=== PATIENT | female | born 1980 | race Caucasian/White ===

== ENCOUNTER → 2016-03-06 | Outpatient (CLI) | payer BC ==
[~2016-03-06] MED LIST: AMPH10TA2 PO; ARMO150T4 PO; AZITTAB PO; CETI10TA84 PO; DIAZ2TAB PO; MTR400; MULT-506 PO; PSEU30TA64 PO; [UNRECOGNIZED DRUG - OTHER]
== END | disposition home or self-care (01) ==
LOC: C.PATH 13:48
PROVIDERS: ATTEND Obstetrics & Gynecology
DX: N72 Inflammatory disease of cervix uteri (principal); N87.1 Moderate cervical dysplasia

== ENCOUNTER → 2016-04-03 | Day surgery (SDC) | payer BC ==
[2016-03-21 11:08] LABS: BASO % 0.4 %; BASO ABS # 0.02 K/uL (0-0.2); COMPLETE YES; EOS % 3.2 %; HEMATOCRIT 38.2 % (37-47); IG% 0.2 %; LYMPH % 24.1 %; LYMPH ABS # 1.12 K/uL (1.2-3.4); MEAN CELL VOLUME 90.3 fL (80-100); MEAN CORPUSCULAR HEMOGLOBIN 30.7 pg (25-34); MONO % 9.9 %; NEUT % 62.2 %; PLATELET COUNT 272 K/uL (130-400); RED BLOOD COUNT 4.23 M/uL (4.2-5.4); WHITE BLOOD COUNT 4.65 K/uL (4.8-10.8)
[2016-03-21 12:10] VITALS: Ht 165.1 cm; Wt 70.9 kg
--- NOTE | 2016-03-21 12:53 | HISTORY & PHYSICAL EXAMINATION ---
DATE OF ADMISSION: 04/03/2016 ADMITTING DIAGNOSES: 1. Moderate cervical dysplasia. 2. Menorrhagia with regular cycles. ADMISSION HISTORY: The patient is a 35-year-old 1, para 1, last menstrual period of 11 March, who is admitted for LEEP excision of her transformation zone for FLORENCE II with placement of Mirena IUD for menorrhagia with regular cycles. The patient had colposcopic directed biopsies in the office which showed FLORENCE II, treatment options were discussed and the patient has consented to move forward with a LEEP excision. The patient has a previous history of menorrhagia with heavy menstrual cycles. This had previously been managed with a Mirena IUD successfully. When the IUD a new one was not placed because the patient's had had a vasectomy. Her menstrual cycles have returned and she wishes to have another IUD placed. PAST MEDICAL HISTORY: OBSTETRICAL: Vaginal delivery x1. GYNECOLOGIC: As above. MEDICAL: Anxiety. SURGICAL: Breast biopsy, colposcopy. ALLERGIES: TRAZODONE. SOCIAL HISTORY: No smoking. FAMILY HISTORY: Noncontributory. REVIEW OF SYSTEMS: As per HPI. PHYSICAL EXAMINATION: GENERAL: Today shows a pleasant female in no acute distress. VITAL SIGNS: Blood pressure 108/72, height of 5 feet 4 inches, weight of 156 pounds. HEENT EXAMINATION: Unremarkable. NECK: Supple. LUNGS: Clear. HEART: With a regular rhythm and rate. ABDOMEN: Soft, nontender. PELVIC: Shows normal external genitalia. The vaginal vault is pink and rugated. The cervical os is multiparous and closed. Bimanual examination shows an anterior mobile uterus. The adnexa show no palpable masses. RECTAL: Confirmatory. EXTREMITIES: Shows no deep calf tenderness. NEUROLOGIC: Grossly intact. IMPRESSION: A 35-year-old 1, para 1, moderate cervical dysplasia and menorrhagia with regular cycles for loop electrosurgical excision procedure excision of transformation zone and intrauterine device placement. PLAN: The risks, benefits and alternatives to the surgeries have been discussed. While the benefits will be excision of her transformation zone, the risks are bleeding, infection, and inability to remove all dysplastic tissue. We have also discussed the risks, benefits and alternatives to the IUD placement. While the benefits will be improvement in her menstrual cycles, the risks are bleeding, infection, inadvertent perforation of the uterus or failure to improve her bleeding pattern. The patient understands all of the above. The permit has been signed and she wishes to proceed.
[~2016-04-03] VITALS: Ht 165.1 cm; Wt 70.9 kg
[~2016-04-03] MED LIST changes: +ACETIC ACID 4% (WHITE VINEGAR) 30ML ONE; -AMPH10TA2 PO; +ATROPINE SULFATE 0.1 MG/ML 5ML SYR IV PRN; -AZITTAB PO; +DEXAMETHASONE SOD INJ 4 MG/ML VIAL ONE; +EpHEDrine SULFATE INJ 50 MG/ML AMP IV PRN; +FENTANYL CITRATE INJ 50 MCG/1 ML 2 ML VIAL IV PRN; +FENTANYL CITRATE INJ 50 MCG/1 ML 2 ML VIAL ONE; +FERRIC SUBSULFATE 8 GM VIAL ONE; +FLUMAZENIL 0.1 MG/1 ML 10 ML VIAL IV PRN; +HYDROCODONE/ACETAMOPHEN 5/325MG TAB ONE; +HYDROCODONE/ACETAMOPHEN 5/325MG TAB PO PRN; +IBUPROFEN 600 MG TAB PO PRN; +KETOROLAC TROMETHAMINE 30 MG/ML VIAL IV. PRN; +KETOROLAC TROMETHAMINE 30 MG/ML VIAL ONE; +LACTATED RINGER'S 1000ML 1,000 ML IV SCH; +LIDOCAINE HCL 2% 2 ML VIAL (20MG/ML) ONE; +MIDAZOLAM HCL 1 MG/ML 2ML VIAL ONE; -MTR400; +NALOXONE HCL 0.4 MG/1 ML VIAL/CARP IV PRN; +ONDANSETRON INJ 2 MG/ML 2 ML VIAL IV PRN; +ONDANSETRON INJ 2 MG/ML 2 ML VIAL ONE; +PROMETHAZINE HCL INJ 12.5 MG in SODIUM CHLORIDE 0.9% 50ML 50 ML IV PRN; +PROPOFOL IV EMULSION 10 MG/ML 20 ML VIAL IV ONE; -PSEU30TA64 PO; +SODIUM CHLORIDE 0.9% 1000ML 1,000 ML IV SCH; -[UNRECOGNIZED DRUG - OTHER]
--- NOTE | 2016-04-03 08:41 | History & Physical Bridge - SC ---
H&P Re-Evaluation Bridge Note: I have examined the patient, reviewed the History & Physical and in the interval since the performance of the History & Physical I have noted the following changes of clinical significance: No changes noted
--- NOTE | 2016-04-03 09:28 | [facility] Post Operative Brief Note ---
Immediate Operative Summary Operative Date Apr 03, 2016. Pre-Operative Diagnosis 1) Moderate Cervical Dysplasia 2) Menorrhagia with regular cycle Post-Operative Diagnosis same Procedure(s) Performed 1)LEEP Conization of Cervix, 2)Insertion Of Mirena Intra Uterine Device Surgeon Dr. Jessica Salcedo Electronic Tester Surgeon(s) 0 Estimated Blood Loss minimal Findings Colopscopic examination of the cervix using acetic acid; Leep excision to a depth of ~1.5 cm using inverted [place] hat procedure. Ectocervical and endocervical specimens sent. Uterus sounded to 8 cm, Mirena IUD inserted and strings trimmed Fluids (cc crystalloids) 800 Specimens A. Ectocervical B. Endocervical Drains None Anesthesia General Complication(s) None Disposition Recovery Room / PACU
--- NOTE | 2016-04-03 09:33 | Discharge Instructions-SurgCtr ---
Discharge Instructions Visit Reason for Visit: Abnormal Pap smear Discharge Discharge Diagnosis / Problem: same Discharge Goals Goal(s): Therapeutic intervention Activity Recommendations Activity Limitations: as noted below Anesthesia . Post Anesthesia Instructions: If you have had General Anesthesia or IV Sedation: * Do not drive today. * Resume driving when surgeon permits. * Do not make important decisions or sign legal documents today. * Call surgeon for: 1. Temperature elevations greater than 101 degrees F. 2. Uncontrollable pain. 3. Excessive bleeding. 4. Persistent nausea and vomiting. 5. Medication intolerance (nausea, vomiting or rash). * For nausea and vomiting use only clear liquids such as: tea, soda, bouillon until nausea subsides, then gradually increase diet as tolerated. * If you have any concerns or questions, call your surgeon's office. If physician is unavailable and it is an emergency, call 911 or go to the nearest emergency room. . Instructions / Follow-Up Instructions / Follow-Up ACTIVITY RECOMMENDATIONS: * Avoid tampons, douching, hot tubs, pools, and intercourse until bleeding has stopped. * May shower as usual. * No strenuous activity for 24-48 hours. After 24-48 hours, you may do anything you feel like doing (driving and sports are okay). SPECIAL CARE INSTRUCTIONS: Special Diet: * Mild nausea may occur in the immediate post-operative period. * Take clear liquids such as tea, cola or bouillon until all nausea has subsided; you may then resume your normal diet. Special Care: * Light bleeding, vaginal spotting and heavy discharge can last from a few days to 3-4 weeks. Call your doctor if bleeding becomes heavier than the heaviest part of your period. * Check your temperature twice a day for one week. If it goes above 100.4 degrees Fahrenheit (38.0 Celsius), notify your doctor. * Call your doctor's office for an appointment for 6 weeks after your surgery. FOLLOW-UP VISIT: Call your doctor's office for an appointment for 2 weeks after your surgery. Diet Recommendations Home Diet: resume previous diet Procedures Procedures Performed: 1)LEEP Conization of Cervix, 2)Insertion Of Mirena Intra Uterine Device Pending Studies Studies pending at discharge: yes List of pending studies: 1) Pathology from LEEP precedure Medical Emergencies . Who to Call and When: Medical Emergencies: If at any time you feel your situation is an emergency, please call 911 immediately. . Non-Emergent Contact Non-Emergency issues call your: Job Counselor Call Non-Emergent contact if: you have a fever, temperature is above 100.5, your pain is worsening, your pain is unusual for you . . "Provider Documentation" section prepared by Breezy Salcedo.
--- NOTE | 2016-04-03 09:54 | OPERATIVE REPORT ---
DATE OF OPERATION: 04/03/2016 PREOPERATIVE DIAGNOSES: 1. Moderate cervical dysplasia. 2. Menorrhagia with regular cycles. POSTOPERATIVE DIAGNOSIS: Same. PROCEDURE PERFORMED: 1. LEEP excision of transformation zone cone. 2. Insertion of Mirena IUD. SURGEON: Dr. Salcedo. ANESTHESIA: General. FINDINGS: Colposcopic examination of the cervix shows a well demarcated transformations zone. LEEP excision of transformation zone performed using an inverted [place] hat procedure. Specimens marked as ectocervical and endocervical. Uterus sounded to a depth of 8 cm, Mirena IUD inserted and deployed, string trimmed. PROCEDURE IN DETAIL: The patient was taken to the operating room after general anesthesia was placed in the dorsal lithotomy position. Colposcopic examination of the cervix was performed. A LEEP excision of the transformation was performed under direct colposcopic examination using an inverted [place] hat procedure. Ectocervical and endocervical specimen obtained. Raw bed was cauterized. The uterus was then sounded to 8 cm. Mirena IUD was inserted initially to 6 cm with the arms deployed and then advanced to the fundus. Introducer removed. Strings trimmed. The patient taken out of dorsal lithotomy to recovery room in satisfactory condition. I attest to the content of the Intraoperative Record and any orders documented therein. Any exceptions are noted below. MTDD
[2016-04-03 10:12] VITALS: TEMP 36.6
--- NOTE | 2016-04-03 10:21 | Anesthesia Progress Nt - [facility] ---
Anesthesia Post Op Note Date & Time Apr 03, 2016 at 10:20 Vital Signs Pain Intensity: 3.0 Vital Signs Past 12 Hours Date Time Temp Pulse Resp B/P Pulse Ox O2 Delivery O2 Flow Rate FiO2 04/03/16 10:00 67 04/03/16 10:00 68 100 04/03/16 09:58 100/63 04/03/16 09:55 65 15 04/03/16 09:55 65 15 100 04/03/16 09:54 37.6 65 16 104/64 100 Room Air 04/03/16 09:53 104/64 04/03/16 09:50 69 16 04/03/16 09:50 69 16 100 04/03/16 09:48 98/61 04/03/16 09:45 68 16 04/03/16 09:45 69 16 100 04/03/16 09:44 68 16 100 04/03/16 09:44 69 16 04/03/16 09:43 98/64 04/03/16 09:39 75 18 100 04/03/16 09:39 75 18 04/03/16 09:38 102/68 04/03/16 09:34 84 17 04/03/16 09:34 85 17 100 04/03/16 09:34 37.6 85 16 113/76 100 Mask 04/03/16 07:35 36.5 93 20 105/78 100 Room Air Notes Mental Status: alert / awake / arousable, participated in evaluation Pt Amnestic to Procedure: Yes Nausea / Vomiting: adequately controlled Pain: adequately controlled Airway Patency, RR, SpO2: stable & adequate BP & HR: stable & adequate Hydration State: stable & adequate Anesthetic Complications: no major complications apparent
[2016-04-03 10:40] VITALS: BP 97/67; PULSE 67; O2SAT 99
== END | disposition home or self-care (01) ==
LOC: X.SURG 07:27
PROVIDERS: ATTEND Obstetrics & Gynecology
DX: N92.0 Excessive and frequent menstruation with regular cycle (principal); N88.8 Other specified noninflammatory disorders of cervix uteri; D06.9 Carcinoma in situ of cervix, unspecified; Z30.430 Encounter for insertion of intrauterine contraceptive device

== ENCOUNTER → 2016-08-02 | Outpatient (CLI) | payer BC ==
[~2016-08-02] MED LIST changes: -ACETIC ACID 4% (WHITE VINEGAR) 30ML ONE; -ATROPINE SULFATE 0.1 MG/ML 5ML SYR IV PRN; -DEXAMETHASONE SOD INJ 4 MG/ML VIAL ONE; -EpHEDrine SULFATE INJ 50 MG/ML AMP IV PRN; -FENTANYL CITRATE INJ 50 MCG/1 ML 2 ML VIAL IV PRN; -FENTANYL CITRATE INJ 50 MCG/1 ML 2 ML VIAL ONE; -FERRIC SUBSULFATE 8 GM VIAL ONE; -FLUMAZENIL 0.1 MG/1 ML 10 ML VIAL IV PRN; -HYDROCODONE/ACETAMOPHEN 5/325MG TAB ONE; -HYDROCODONE/ACETAMOPHEN 5/325MG TAB PO PRN; -IBUPROFEN 600 MG TAB PO PRN; -KETOROLAC TROMETHAMINE 30 MG/ML VIAL IV. PRN; -KETOROLAC TROMETHAMINE 30 MG/ML VIAL ONE; -LACTATED RINGER'S 1000ML 1,000 ML IV SCH; -LIDOCAINE HCL 2% 2 ML VIAL (20MG/ML) ONE; -MIDAZOLAM HCL 1 MG/ML 2ML VIAL ONE; -NALOXONE HCL 0.4 MG/1 ML VIAL/CARP IV PRN; -ONDANSETRON INJ 2 MG/ML 2 ML VIAL IV PRN; -ONDANSETRON INJ 2 MG/ML 2 ML VIAL ONE; -PROMETHAZINE HCL INJ 12.5 MG in SODIUM CHLORIDE 0.9% 50ML 50 ML IV PRN; -PROPOFOL IV EMULSION 10 MG/ML 20 ML VIAL IV ONE; -SODIUM CHLORIDE 0.9% 1000ML 1,000 ML IV SCH
== END | disposition home or self-care (01) ==
LOC: C.PAPS 11:06
PROVIDERS: ATTEND Obstetrics & Gynecology
DX: D06.9 Carcinoma in situ of cervix, unspecified (principal)

== ENCOUNTER → 2016-12-11 | Outpatient (CLI) | payer BC | END | disposition home or self-care (01) | LOC: C.PAPS 09:15 | PROVIDERS: ATTEND Obstetrics & Gynecology | DX: Z01.419 Encounter for gynecological examination (general) (routine) without abnormal findings (principal) ==

== ENCOUNTER → 2017-03-30 | Outpatient (CLI) | payer BC | END | disposition home or self-care (01) | LOC: C.PAPS 15:10 | PROVIDERS: ATTEND Obstetrics & Gynecology | DX: D06.9 Carcinoma in situ of cervix, unspecified (principal) ==